=== PATIENT | female | born 1930 | race Caucasian/White ===

== ENCOUNTER 2018-08-13 22:22 | Emergency (ER) | payer MEDICARE ==
[~2018-08-13] VITALS: Ht 147.3 cm; Wt 58.0 kg
[~2018-08-13 22:22] MED LIST: ASPI-515 PO; METO25TA35 PO; PRAV10TA2 PO
[2018-08-13 22:52] LABS: BASOPHILS # (AUTO) 0.04 x10^3/uL (0-0.1); BASOPHILS % (AUTO) 1 % (0-1); EOSINOPHILS # (AUTO) 0.22 x10^3/uL (0-0.4); EOSINOPHILS % (AUTO) 3 % (1-7); LYMPHOCYTES # (AUTO) 2.84 x10^3/uL (1-3.4); LYMPHOCYTES % (AUTO) 37 % (22-44); MD NO; MEAN CORPUSCULAR HEMOGLOBIN 28.2 pg (27.0-34.8); MEAN CORPUSCULAR VOLUME 88.1 fL (80-100); MEAN PLATELET VOLUME 8.2 fL (7.4-10.4); MONOCYTES # (AUTO) 0.45 x10^3/uL (0.2-0.8); MONOCYTES % (AUTO) 6 % (2-9); NEUTROPHILS # (AUTO) 4.16 x10^3/uL (1.8-6.8); NEUTROPHILS % (AUTO) 54 % (42-75); PLATELET COUNT 269 x10^3/uL (130-400); RED BLOOD COUNT 4.77 x10^6/uL (3.82-5.3); RED CELL DISTRIBUTION WIDTH 14.6 % (9.6-15.2)
[2018-08-13 23:00] LABS: ALBUMIN 4.1 g/dL (3.4-5.0); ANION GAP 8 mmol/L (5-15); CHLORIDE 112 mmol/L (98-107); CREATININE 0.81 mg/dL (0.55-1.02)
[2018-08-13 23:04] LABS: TROPONIN I < 0.015 ng/mL (0.000-0.045)
[2018-08-13 23:40] VITALS: BP 159/76
== END 2018-08-14 00:39 | disposition home or self-care (01) ==
LOC: ED 08-14 00:20
DX: S06.0X0A Concussion without loss of consciousness, initial encounter (principal); G89.11 Acute pain due to trauma; M25.521 Pain in right elbow; I10 Essential (primary) hypertension; R55 Syncope and collapse; Z90.710 Acquired absence of both cervix and uterus; W01.0XXA Fall on same level from slipping, tripping and stumbling without subsequent striking against object, initial encounter; Y93.89 Activity, other specified; Y92.39 Other specified sports and athletic area as the place of occurrence of the external cause; Y99.8 Other external cause status
CPT/HCPCS: 36415; 70450; 80048; 82040; 84484; 85025; 93005; 99284